=== PATIENT | female | born 1950 | race Caucasian/White ===

== ENCOUNTER 2020-05-10 14:25 | Observation (INO) | payer MEDICARE ==
[2020-05-10] MEDS ORDERED: ASPIRIN 81 MG PO STA (14:50)
[2020-05-10] MEDS ORDERED: NITROGLYCERIN OINT 1 INCH/GM PACKET TOPICAL STA (14:50)
--- NOTE | 2020-05-10 14:54 | ED ---
General Adult HPI - General Chief complaint: Chest Pain Stated complaint: Chest Pain Time Seen by Provider: 05/10/20 14:37 Source: patient, family, RN notes reviewed Mode of arrival: wheelchair Limitations: no limitations - History of Present Illness Initial comments: Patient is a pleasant 70-year-old female presenting to the emergency department chest discomfort. Onset of symptoms was this morning. Patient has had waxing and waning chest discomfort that is been mostly mild. Symptoms are near resolved at this point. Discomfort feels dull. There is some radiation towards the left ear and left arm. No specific dyspnea however patient has had some exertional dyspnea over the past 6 months or so. Patient was a little bit sweaty earlier. No nausea. No history of similar symptoms previous. Patient does have history of atrial fibrillation and is on Eliquis for this. - Related Data Allergies Allergy/AdvReac Type Severity Reaction Status Date / Time morphine AdvReac Nausea & Verified 05/10/20 14:31 Vomiting Review of Systems ROS Statement: Those systems with pertinent positive or pertinent negative responses have been documented in the HPI. ROS Other: All systems not noted in ROS Statement are negative. Constitutional: Denies: fever Eyes: Denies: eye pain ENT: Denies: ear pain Respiratory: Reports: as per HPI Cardiovascular: Reports: as per HPI, chest pain Endocrine: Reports: fatigue Gastrointestinal: Denies: abdominal pain Genitourinary: Denies: dysuria Musculoskeletal: Denies: back pain Skin: Denies: rash Neurological: Denies: weakness Past Medical History Past Medical History: Atrial Fibrillation, Rheumatoid Arthritis (RA) History of Any Multi-Drug Resistant Organisms: None Reported Past Surgical History: Back Surgery, Tubal Ligation Past Psychological History: Anxiety Smoking Status: Never smoker Past Alcohol Use History: Occasional Past Drug Use History: None Reported General Exam Limitations: no limitations General appearance: alert, in no apparent distress Head exam: Present: normocephalic Eye exam: Present: normal appearance Neck exam: Present: normal inspection Respiratory exam: Present: normal lung sounds bilaterally. Absent: chest wall tenderness Cardiovascular Exam: Present: regular rate, irregular rhythm Expanded Peripheral pulses: 2+: Radial (R), Radial (L), Posterior Tibialis (R), Posterior Tibialis (L), Dorsalis Pedis (R), Dorsalis Pedis (L) GI/Abdominal exam: Present: soft. Absent: tenderness Extremities exam: Present: normal inspection. Absent: pedal edema, calf tenderness Neurological exam: Present: alert Psychiatric exam: Present: normal affect, normal mood Skin exam: Present: normal color Course Vital Signs 05/10/20 05/10/20 05/10/20 14:28 15:22 16:12 Temperature 97.8 F Pulse Rate 109 H 88 92 Respiratory 20 19 17 Rate Blood Pressure 129/88 113/77 109/86 O2 Sat by Pulse 99 96 96 Oximetry EKG Findings - EKG Comments: EKG Findings:: H a fibrillation with rate of 82. QRS 94. QT 362. QTC 422. Normal axis. Normal QRS. No acute ST change. Medical Decision Making - Medical Decision Making Patient reevaluated and resting comfortably in bed, symptom-free at this time. Patient and family updated on results and plan. Case was discussed in detail with Dr. Skaggs, who will admit covering for Dr. Amaral - Lab Data Result diagrams: 05/10/20 15:08 05/10/20 15:08 Lab Results 05/10/20 05/10/20 05/10/20 Range/Units 15:08 15:08 15:08 WBC 6.9 (3.8-10.6) k/uL RBC 4.23 (3.80-5.40) m/uL Hgb 13.0 (11.4-16.0) gm/dL Hct 38.1 (34.0-46.0) % MCV 90.2 (80.0-100.0) fL MCH 30.7 (25.0-35.0) pg MCHC 34.0 (31.0-37.0) g/dL RDW 12.5 (11.5-15.5) % Plt Count 277 (150-450) k/uL Neutrophils % 62 % Lymphocytes % 29 % Monocytes % 5 % Eosinophils % 3 % Basophils % 0 % Neutrophils # 4.2 (1.3-7.7) k/uL Lymphocytes # 2.0 (1.0-4.8) k/uL Monocytes # 0.3 (0-1.0) k/uL Eosinophils # 0.2 (0-0.7) k/uL Basophils # 0.0 (0-0.2) k/uL PT 9.9 (9.0-12.0) sec INR 0.9 (<1.2) APTT 23.5 (22.0-30.0) sec D-Dimer 0.29 (<0.60) mg/L FEU Sodium 134 L (137-145) mmol/L Potassium 4.4 (3.5-5.1) mmol/L Chloride 103 (98-107) mmol/L Carbon Dioxide 25 (22-30) mmol/L Anion Gap 6 mmol/L BUN 17 (7-17) mg/dL Creatinine 0.70 (0.52-1.04) mg/dL Est GFR (CKD-EPI)AfAm >90 (>60 ml/min/1.73 sqM) Est GFR (CKD-EPI)NonAf 87 (>60 ml/min/1.73 sqM) Glucose 96 (74-99) mg/dL Calcium 9.4 (8.4-10.2) mg/dL Magnesium 2.1 (1.6-2.3) mg/dL Total Bilirubin 0.5 (0.2-1.3) mg/dL AST 26 (14-36) U/L ALT 18 (4-34) U/L Alkaline Phosphatase 66 (38-126) U/L Troponin I (0.000-0.034) ng/mL NT-Pro-B Natriuret Pep pg/mL Total Protein 6.9 (6.3-8.2) g/dL Albumin 4.3 (3.5-5.0) g/dL 05/10/20 05/10/20 Range/Units 15:08 15:08 WBC (3.8-10.6) k/uL RBC (3.80-5.40) m/uL Hgb (11.4-16.0) gm/dL Hct (34.0-46.0) % MCV (80.0-100.0) fL MCH (25.0-35.0) pg MCHC (31.0-37.0) g/dL RDW (11.5-15.5) % Plt Count (150-450) k/uL Neutrophils % % Lymphocytes % % Monocytes % % Eosinophils % % Basophils % % Neutrophils # (1.3-7.7) k/uL Lymphocytes # (1.0-4.8) k/uL Monocytes # (0-1.0) k/uL Eosinophils # (0-0.7) k/uL Basophils # (0-0.2) k/uL PT (9.0-12.0) sec INR (<1.2) APTT (22.0-30.0) sec D-Dimer (<0.60) mg/L FEU Sodium (137-145) mmol/L Potassium (3.5-5.1) mmol/L Chloride (98-107) mmol/L Carbon Dioxide (22-30) mmol/L Anion Gap mmol/L BUN (7-17) mg/dL Creatinine (0.52-1.04) mg/dL Est GFR (CKD-EPI)AfAm (>60 ml/min/1.73 sqM) Est GFR (CKD-EPI)NonAf (>60 ml/min/1.73 sqM) Glucose (74-99) mg/dL Calcium (8.4-10.2) mg/dL Magnesium (1.6-2.3) mg/dL Total Bilirubin (0.2-1.3) mg/dL AST (14-36) U/L ALT (4-34) U/L Alkaline Phosphatase (38-126) U/L Troponin I <0.012 (0.000-0.034) ng/mL NT-Pro-B Natriuret Pep 1780 pg/mL Total Protein (6.3-8.2) g/dL Albumin (3.5-5.0) g/dL - Radiology Data Radiology results: image reviewed (Chest x-ray shows no acute process) Disposition Clinical Impression: Chest pain Disposition: ADMITTED IP TO THIS [facility] Is patient prescribed a controlled substance at d/c from ED?: No Referrals: Mayur Street DO [Primary Care Provider] - 1-2 days Decision Time: 16:37
[2020-05-10 15:20] LABS: Basophils % (A) 0 %; Eosinophils # (A) 0.2 k/uL (0-0.7); Eosinophils % (A) 3 %; HCT 38.1 % (34.0-46.0); Lymphocytes % (A) 29 %; MCH 30.7 pg (25.0-35.0); MCV 90.2 fL (80.0-100.0); Monocytes # (A) 0.3 k/uL (0-1.0); Monocytes % (A) 5 %; Neutrophils # (A) 4.2 k/uL (1.3-7.7); Neutrophils % (A) 62 %; Platelet Count 277 k/uL (150-450); RBC 4.23 m/uL (3.80-5.40); RDW 12.5 % (11.5-15.5); WBC 6.9 k/uL (3.8-10.6)
[2020-05-10 15:27] LABS: ALT 18 U/L (4-34); AST 26 U/L (14-36); African American GFR (CKD) >90 (>60 ml/min/1.73 sqM); Albumin 4.3 g/dL (3.5-5.0); Alkaline Phosphatase 66 U/L (38-126); Anion Gap 6 mmol/L; Blood Urea Nitrogen 17 mg/dL (7-17); Calcium 9.4 mg/dL (8.4-10.2); Carbon Dioxide 25 mmol/L (22-30); Chloride 103 mmol/L (98-107); Glucose 96 mg/dL (74-99); Magnesium 2.1 mg/dL (1.6-2.3); Non-African American GFR(CKD) 87 (>60 ml/min/1.73 sqM); Potassium 4.4 mmol/L (3.5-5.1); Sodium 134 mmol/L (137-145); Total Bilirubin 0.5 mg/dL (0.2-1.3); Total Protein 6.9 g/dL (6.3-8.2)
--- NOTE | 2020-05-10 15:36 | XR ---
EXAMINATION TYPE: XR chest 2V DATE OF EXAM: 05/10/2020 COMPARISON: NONE HISTORY: Shortness of breath TECHNIQUE: Frontal and lateral views of the chest are obtained. FINDINGS: Scattered senescent parenchymal changes noted. Hyperinflation compatible with COPD. No evidence for infiltrate. No evidence for atelectasis. Heart size is stable. Mediastinal structures are stable and grossly unremarkable. No evidence for hilar prominence. Degenerative changes dorsal spine. IMPRESSION: 1. No evidence for acute pulmonary disease.
[2020-05-10 15:44] LABS: D-Dimer 0.29 mg/L FEU (<0.60); INR 0.9 (<1.2); Partial Thromboplastin Time 23.5 sec (22.0-30.0); Prothrombin Time 9.9 sec (9.0-12.0)
[2020-05-10] MEDS ORDERED: NITROGLYCERIN SL TABS 0.4 MG TAB SUBLINGUAL PRN (16:38)
[2020-05-10] MEDS ORDERED: HYDROcodone/APAP 7.5-325MG 1 EACH TAB PO PRN (18:39)
[2020-05-10] MEDS: METOPROLOL SUCCINATE (ER) 50 MG TAB.ER.24H PO SCH (20:30)
[2020-05-10] MEDS: APIXABAN 5 MG TAB PO SCH (20:30)
[2020-05-10] MEDS: VIT A,C & E-LUTEIN-MINERALS 1 EACH TAB PO SCH (20:30)
[2020-05-10] MEDS: NITROGLYCERIN OINT 1 INCH/GM PACKET TOPICAL SCH (20:36)
[2020-05-10 21:29] VITALS: RESP 18
[2020-05-11] MEDS: NITROGLYCERIN OINT 1 INCH/GM PACKET TOPICAL SCH ×2 (00:48→05:10)
[2020-05-11 07:37] LABS: Cholesterol 185 mg/dL (<200); HDL Cholesterol 72 mg/dL (40-60); LDL Cholesterol,Calculated 101 mg/dL (0-99); Triglycerides 62 mg/dL (<150)
[2020-05-11] MEDS: APIXABAN 5 MG TAB PO SCH (08:38)
[2020-05-11] MEDS: METOPROLOL SUCCINATE (ER) 50 MG TAB.ER.24H PO SCH (08:38)
[2020-05-11] MEDS: VIT A,C & E-LUTEIN-MINERALS 1 EACH TAB PO SCH (08:38)
[2020-05-11] MEDS ORDERED: MULTIVITAMINS, THERA 1 EACH TAB PO SCH (09:00)
[2020-05-11] MEDS ORDERED: CITALOPRAM HYDROBROMIDE 20 MG TAB PO SCH (09:00)
[2020-05-11] MEDS ORDERED: ASPIRIN 325 MG TAB PO SCH (09:00)
--- NOTE | 2020-05-11 09:44 | P.CRDCN ---
History of Present Illness History of present illness: HISTORY OF PRESENTING ILLNESS This is a pleasant 70-year-old female past medical history significant for chronic persistent atrial fibrillation on long-term anticoagulation status post failed cardioversion and hypertension. She follows in the office with a property adjuster [facility]. We have been asked to see in consultation for chest pain. He states yesterday after doing some light yard work she came in to be cleaned up. While taking a shower she bent over to clean her feet and noticed a pressure sensation in the left precordial region that radiated minimally up to the left jaw. It was associated with some diaphoresis. She denies shortness of breath, dizziness or palpitations. Pressure resolved on its own after about 20 minutes. She has had no further symptoms of chest discomfort since arriving at the hospital. DIAGNOSTICS EKG reveals her fibrillation with controlled ventricular rate. Chest xray negative for an acute cardiopulmonary process. Laboratory reviewed, CBC unremarkable, d-dimer 0.29, sodium 134, potassium 4.4, creatinine 0.7, cardiac enzymes negative 3, and T proBNP 1780, LDL 101 and HDL 72. Current cardiac medications include Eliquis 5 mg twice a day and Toprol 50 mg twice a day. REVIEW OF SYSTEMS At the time of my exam: CONSTITUTIONAL: Denies fever or chills. CARDIOVASCULAR: Denies chest pain, shortness of breath, orthopnea, PND or pa lpitations. RESPIRATORY: Denies cough. GASTROINTESTINAL: Denies abdominal pain, diarrhea, constipation, nausea or vomiting. MUSCULOSKELETAL: Denies myalgias. NEUROLOGIC: Denies numbness, tingling or weakness. ENDOCRINE: Denies fatigue, weight change, polydipsia or polyurina. GENITOURINARY: Denies burning, hematuria or urgency with micturation. HEMATOLOGIC: Denies history of anemia or bleeding. PHYSICAL EXAMINATION Blood pressure 128/86 heart rate 84 afebrile and maintaining oxygen saturation on room air. CONSTITUTIONAL: No apparent distress. HEENT: Head is normocephalic. Pupils are equal, round. Sclerae anicteric. Mucous membranes of the mouth are moist. No JVD. No carotid bruit. CHEST EXAMINATION: Lungs are clear to auscultation. No chest wall tenderness is noted on palpation or with deep breathing. HEART EXAMINATION: irregular rate and rhythm. S1, S2 heard. No murmurs, gallops or rub. ABDOMEN: Soft, nontender. Positive bowel sounds. EXTREMITIES: 2+ peripheral pulses, no lower extremity edema and no calf tenderness. NEUROLOGIC EXAMINATION: Patient is awake, alert and oriented x3. ASSESSMENT Chest pain, an acute coronary event has been ruled out. Chronic persistent atrial fibrillation on long-term anticoagulation with controlled ventricular rate Hypertension PLAN An acute coronary event has been ruled out. Obtain 2-D echocardiogram and Doppler study to assess cardiac structure and function. Recommend inpatient stress testing however the patient would prefer to follow-up with her primary property adjuster and have this done as an outpatient. The risks explained to the patient including sudden cardiac and she is agreeable to assume that risk. We have advised her to follow-up with her primary property adjuster upon discharge. Thank you kindly for this consultation. Nurse Practitioner note has been reviewed, I agree with a documented findings and plan of care. Patient was seen and examined. 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 colonoscopys Past Anesthesia/Blood Transfusion Reactions: No Reported Reaction Smoking Status: Never smoker - Past Family History Mother Family Medical History: Cancer Additional Family Medical History / Comment(s): colon cancer Father Family Medical History: AFIB Additional Family Medical History / Comment(s): 91 years old when passed Medications and Allergies Home Medications Medication Instructions Recorded Confirmed Type Apixaban [Eliquis] 5 mg PO BID 05/10/20 05/10/20 History Citalopram Hydrobromide See Taper PO DIRECTED 05/10/20 05/10/20 History [Citalopram HBr] HYDROcodone/APAP 7.5-325MG [[place] 1 tab PO Q6H PRN 05/10/20 05/10/20 History 7.5-325] Metoprolol Succinate (ER) [Toprol 50 mg PO BID 05/10/20 05/10/20 History Xl] Multivitamins, Thera [Multivitamin 1 tab PO DAILY 05/10/20 05/10/20 History (formulary)] Vit C/E/Zn/Coppr/Lutein/Zeaxan 1 cap PO BID 05/10/20 05/10/20 History [Preservision Areds 2 Softgel] Allergies Allergy/AdvReac Type Severity Reaction Status Date / Time morphine AdvReac Nausea & Verified 05/10/20 18:20 Vomiting Physical Exam Vitals: Vital Signs Temp Pulse Pulse Resp BP BP BP 05/11/20 03:00 97.8 F 83 18 133/83 05/10/20 21:00 98 F 70 18 121/80 05/10/20 17:45 97.8 F 106 H 16 132/84 05/10/20 17:28 98.4 F 98 18 118/88 05/10/20 16:12 92 17 109/86 05/10/20 15:22 88 19 113/77 05/10/20 14:28 97.8 F 109 H 20 129/88 Pulse Ox 05/11/20 03:00 96 05/10/20 21:00 97 05/10/20 17:45 99 05/10/20 17:28 97 05/10/20 16:12 96 05/10/20 15:22 96 05/10/20 14:28 99 Intake and Output 05/10/20 05/11/20 05/11/20 22:59 06:59 14:59 Intake Total 200 Balance 200 Intake: Oral 200 Other: Voiding Method Toilet Toilet # Voids 1 Weight 90.718 kg Results 05/10/20 15:08 05/10/20 15:08 Cardiac Enzymes 05/10/20 05/10/20 05/10/20 Range/Units 15:08 15:08 17:53 AST 26 (14-36) U/L Troponin I <0.012 <0.012 (0.000-0.034) ng/mL 05/10/20 Range/Units 21:08 AST (14-36) U/L Troponin I <0.012 (0.000-0.034) ng/mL Coagulation 05/10/20 Range/Units 15:08 PT 9.9 (9.0-12.0) sec APTT 23.5 (22.0-30.0) sec Lipids 05/11/20 Range/Units 06:45 Triglycerides 62 (<150) mg/dL Cholesterol 185 (<200) mg/dL HDL Cholesterol 72 H (40-60) mg/dL CBC 05/10/20 Range/Units 15:08 WBC 6.9 (3.8-10.6) k/uL RBC 4.23 (3.80-5.40) m/uL Hgb 13.0 (11.4-16.0) gm/dL Hct 38.1 (34.0-46.0) % Plt Count 277 (150-450) k/uL Comprehensive Metabolic Panel 05/10/20 Range/Units 15:08 Sodium 134 L (137-145) mmol/L Potassium 4.4 (3.5-5.1) mmol/L Chloride 103 (98-107) mmol/L Carbon Dioxide 25 (22-30) mmol/L BUN 17 (7-17) mg/dL Creatinine 0.70 (0.52-1.04) mg/dL Glucose 96 (74-99) mg/dL Calcium 9.4 (8.4-10.2) mg/dL AST 26 (14-36) U/L ALT 18 (4-34) U/L Alkaline Phosphatase 66 (38-126) U/L Total Protein 6.9 (6.3-8.2) g/dL Albumin 4.3 (3.5-5.0) g/dL Current Medications Generic Name Dose Route Start Last Admin Trade Name Freq PRN Reason Stop Dose Admin Hydrocodone Bitart/Acetaminophen 1 each 05/10/20 18:39 [place] 7.5-325 PO Q6H PRN Pain Apixaban 5 mg 05/10/20 21:00 05/10/20 20:30 Eliquis PO 5 mg BID [facility] Administration Aspirin 325 mg 05/11/20 09:00 Aspirin PO DAILY [facility] Citalopram Hydrobromide 20 mg 05/11/20 09:00 Celexa PO DAILY [facility] Metoprolol Succinate 50 mg 05/10/20 21:00 05/10/20 20:30 Toprol Xl PO 50 mg BID [facility]U Administration Multivitamins 1 each 05/11/20 09:00 Theragran PO DAILY [facility] Multivitamins/Minerals 1 each 05/10/20 21:00 05/10/20 20:30 Ivite PO 1 each BID WU Administration Nitroglycerin 0.4 mg 05/10/20 16:38 Nitrostat SUBLINGUAL Q5M PRN Chest Pain Nitroglycerin 1 inch 05/10/20 18:00 05/11/20 05:10 Nitro-Bid Oint TOPICAL Not Given Q6HR WU Sodium Chloride 10 ml 05/10/20 21:00 05/10/20 20:31 Saline Flush IV 10 ml BID WU Administration Intake and Output 05/10/20 05/11/20 05/11/20 22:59 06:59 14:59 Intake Total 200 Balance 200 Intake: Oral 200 Other: Voiding Method Toilet Toilet # Voids 1 Weight 90.718 kg 05/10/20 15:08 05/10/20 15:08
--- NOTE | 2020-05-11 12:05 | ECHOF ---
Referral Reason:cp, hx afib MEASUREMENTS -------- HEIGHT: 154.9 cm WEIGHT: 90.7 kg BP: 133/83 RVIDd: 3.3 cm (< 3.3) IVSd: 1.5 cm (0.6 - 1.1) LVIDd: 4.5 cm (3.9 - 5.3) LVPWd: 1.3 cm (0.6 - 1.1) IVSs: 1.8 cm LVIDs: 3.0 cm LVPWs: 1.6 cm LAESV Index (A-L): 46.48 ml/m Ao Diam: 3.2 cm (2.0 - 3.7) AV Cusp: 2.0 cm (1.5 - 2.6) MV EXCURSION: 22.863 mm (> 18.000) MV EF SLOPE: 182 mm/s (70 - 150) EPSS: 0.3 cm AR PHT: 512 ms RAP: 5.00 mmHg RVSP: 32.71 mmHg FINDINGS -------- This was a technically adequate study. The left ventricular size is normal. There is mild concentric left ventricular hypertrophy. Overa ll left ventricular systolic function is low-normal with, an EF between 50 - 55 %. Left ventricular fillimg pressure cannot be estimated due to Atrial fibrillation. The right ventricle is mildly enlarged. LA is severely dilated >40 ml/m2 The right atrium is mildly enlarged. Interatrial and interventricular septum intact. There is mild aortic valve sclerosis. There is mild aortic regurgitation. There is no evidence of aortic stenosis. Moderate mitral regurgitation is present. Mild tricuspid regurgitation present. There is borderline pulmonary hypertension. The right ventr icular systolic pressure, as measured by Doppler, is 32.71mmHg. There is no pulmonic regurgitation present. The aortic root size is normal. Normal inferior vena cava with normal inspiratory collapse consistent with estimated right atrial pre ssure of 5 mmHg. There is no pericardial effusion. CONCLUSIONS -------- 1. The left ventricular size is normal. 2. There is mild concentric left ventricular hypertrophy. 3. Overall left ventricular systolic function is low-normal with, an EF between 50 - 55 %. 4. Left ventricular fillimg pressure cannot be estimated due to Atrial fibrillation. 5. The right ventricle is mildly enlarged. 6. LA is severely dilated >40 ml/m2 7. The right atrium is mildly enlarged. 8. There is mild aortic valve sclerosis. 9. There is mild aortic regurgitation. 10. Moderate mitral regurgitation is present. 11. Mild tricuspid regurgitation present. 12. There is borderline pulmonary hypertension. 13. The right ventricular systolic pressure, as measured by Doppler, is 32.71mmHg. PILING SETTER: Justine Galan RDCS
[2020-05-11 16:18] VITALS: BP 138/94; PULSE 86; TEMP 98
--- NOTE | 2020-05-11 23:15 | P.HPIM ---
History of Present Illness H&P Date: 05/11/20 Chief Complaint: Chest pressure History of presenting complaint: This is a very pleasant 70-year-old patient off [place]. Chronic stable medical conditions include atrial fibrillation, rheumatoid arthritis and osteoarthritis of the lower spine. Patient does take Lopressor. Patient had presented with 2 hours episode yesterday of dull chest pressure in the precordial area. No dizziness no lightheadedness or perspiration or shortness of breath. The pain though did radiate to the left ear. Patient presents to ER with a diagnosis of unstable angina. Troponins were negative. No further episode. Review of systems: GEN.: None EYES: None HEENT: None NECK: None RESPIRATORY: None CARDIOVASCULAR: As above GASTROINTESTINAL: None GENITOURINARY: None MUSCULOSKELETAL: Joint pains LYMPHATICS: None HEMATOLOGICAL: None PSYCHIATRY: None NEUROLOGICAL: None Past medical history to include: Atrial fibrillation, rheumatoid arthritis, anxiety Social history: Drinks 3-4 beers a week. No smoking. . Physical examination: VITAL SIGNS: 97.8, 109, 20, 129/88, but in 9% on room air GENERAL: BMI 37.8, sitting up in bed, awake. EYES: Pupils equal. Conjunctiva normal. HEENT: External appearance of nose and ears normal, oral cavity grossly normal. NECK: JVD not raised; masses not palpable. HEART: First and second heart sounds are normal; no edema. LUNGS: Respiratory rate normal; clear to auscultation. ABDOMEN: Soft, nontender, liver spleen not palpable, no masses palpable. PSYCH: Alert and oriented x3; mood and affect normal. MUSCULAR skeletal: Evidence of arthritis in the hands NEUROLOGICAL: Cranial nerves grossly intact; no facial asymmetry, power and sensation grossly intact. LYMPHATICS: No lymph nodes palpable in the axilla and neck INVESTIGATIONS, reviewed in the clinical context: White count 6.9 hemoglobin 13 platelets 277 potassium 4.4 creatinine 0.7 Troponin I 3 negative proBNP 1780 LDL 101 EKG tracing personally reviewed by me-atrial fibrillation rate controlled Chest x-ray film personally reviewed by me-cardiomegaly Assessment: -Patient presents with at least 2 hours of left anterior chest wall pain more like a pressure with radiation to the left ear. Possibly unstable angina. Troponins negative. -Persistent atrial fibrillation rate controlled -Obesity BMI 37.8 -Anxiety not otherwise specified -Rheumatoid arthritis -Osteoarthritis of the lumbar spine Plan: Home medications were resumed. Given nitro paste. Cardiology were consulted. Troponins were negative. 2-D echo ordered. 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 Past Anesthesia/Blood Transfusion Reactions: No Reported Reaction Smoking Status: Never smoker - Past Family History Mother Family Medical History: Cancer Additional Family Medical History / Comment(s): colon cancer Father Family Medical History: AFIB Additional Family Medical History / Comment(s): 91 years old when passed Medications and Allergies Home Medications Medication Instructions Recorded Confirmed Type Apixaban [Eliquis] 5 mg PO BID 05/10/20 05/10/20 History Citalopram Hydrobromide See Taper PO DIRECTED 05/10/20 05/10/20 History [Citalopram HBr] HYDROcodone/APAP 7.5-325MG [[place] 1 tab PO Q6H PRN 05/10/20 05/10/20 History 7.5-325] Metoprolol Succinate (ER) [Toprol 50 mg PO BID 05/10/20 05/10/20 History XL] Multivitamins, Thera [Multivitamin 1 tab PO DAILY 05/10/20 05/10/20 History (formulary)] Vit C/E/Zn/Coppr/Lutein/Zeaxan 1 cap PO BID 05/10/20 05/10/20 History [Preservision Areds 2 Softgel] Aspirin 81 mg PO DAILY #30 chewable 05/11/20 Rx Nitroglycerin Sl Tabs [Nitrostat] 0.4 mg SUBLINGUAL Q5M PRN #25 tab 05/11/20 Rx Allergies Allergy/AdvReac Type Severity Reaction Status Date / Time morphine AdvReac Nausea & Verified 05/10/20 18:20 Vomiting Physical Exam Vitals: Vital Signs Temp Pulse Pulse Resp BP BP BP 05/11/20 08:51 97.5 F L 84 18 128/86 05/11/20 03:00 97.8 F 83 18 133/83 05/10/20 21:00 98 F 70 18 121/80 05/10/20 17:45 97.8 F 106 H 16 132/84 05/10/20 17:28 98.4 F 98 18 118/88 05/10/20 16:12 92 17 109/86 05/10/20 15:22 88 19 113/77 05/10/20 14:28 97.8 F 109 H 20 129/88 Pulse Ox 05/11/20 08:51 100 05/11/20 03:00 96 05/10/20 21:00 97 05/10/20 17:45 99 05/10/20 17:28 97 05/10/20 16:12 96 05/10/20 15:22 96 05/10/20 14:28 99 Intake and Output 05/10/20 05/11/20 05/11/20 22:59 06:59 14:59 Intake Total 200 Balance 200 Intake: Oral 200 Other: Voiding Method Toilet Toilet # Voids 1 Weight 90.718 kg Results CBC & Chem 7: 05/10/20 15:08 05/10/20 15:08 Labs: Abnormal Lab Results - Last 24 Hours (Table) 05/10/20 05/11/20 Range/Units 15:08 06:45 Sodium 134 L (137-145) mmol/L LDL Cholesterol, Calc 101 H (0-99) mg/dL HDL Cholesterol 72 H (40-60) mg/dL Thrombosis Risk Factor Assmnt - Choose All That Apply Each Factor Represents 1 point: Obesity (BMI >25), Swollen legs (current) Other Risk Factors: Yes (atrial fib) Each Risk Factor Represents 2 Points: Age 61-74 years Thrombosis Risk Factor Assessment Total Risk Factor Score: 4 Thrombosis Risk Factor Assessment Level: Moderate Risk
--- NOTE | 2020-05-11 23:19 | P.DS ---
Providers Date of admission: 05/10/20 16:38 Expected date of discharge: 05/11/20 Attending physician: Xavier Skaggs Consults: 05/10/20 16:38 Consult Physician Urgent Consulting Provider: Donaldo Hill Consult Reason/Comments: cp Do you want consulting provider notified?: Yes Primary care physician: [facility] Course: Chief Complaint: Chest pressure History of presenting complaint: This is a very pleasant 70-year-old patient off [address]. Chronic stable medical conditions include atrial fibrillation, rheumatoid arthritis and oste oarthritis of the lower spine. Patient does take Lopressor. Patient had presented with 2 hours episode yesterday of dull chest pressure in the precordial area. No dizziness no lightheadedness or perspiration or shortness of breath. The pain though did radiate to the left ear. Patient presents to ER with a diagnosis of unstable angina. Troponins were negative. No further episode. Admitted with unstable angina. Patient was offered a stress test. 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 She discussed this on shipping/receiving clerk here. Currently no chest pain. was present. Consultation: Dr. CHRIS Hill from cardiology Physical examination: VITAL SIGNS: 98, 86, 18, 138/94, 97% room air GENERAL: BMI 37.8, sitting up in bed, awake. EYES: Pupils equal. Conjunctiva normal. HEENT: External appearance of nose and ears normal, oral cavity grossly normal. NECK: JVD not raised; masses not palpable. HEART: First and second heart sounds are normal; no edema. LUNGS: Respiratory rate normal; clear to auscultation. ABDOMEN: Soft, nontender, liver spleen not palpable, no masses palpable. PSYCH: Alert and oriented x3; mood and affect normal. MUSCULAR skeletal: Evidence of arthritis in the hands INVESTIGATIONS, reviewed in the clinical context: White count 6.9 hemoglobin 13 platelets 277 potassium 4.4 creatinine 0.7 Troponin I 3 negative proBNP 1780 LDL 101 EKG tracing personally reviewed by me-atrial fibrillation rate controlled Chest x-ray film personally reviewed by me-cardiomegaly 2-D echocardiogram-a 50-55%, moderate mitral regurgitation Assessment: -Possible unstable angina, currently chest pain-free. -Persistent atrial fibrillation rate controlled -Obesity BMI 37.8 -Anxiety not otherwise specified -Rheumatoid arthritis -Osteoarthritis of the lumbar spine -Moderate mitral regurgitation, non rheumatic Disposition: Home Patient Condition at Discharge: Stable Plan - Discharge Summary New Discharge Prescriptions: New Aspirin 81 mg PO DAILY #30 chewable Nitroglycerin Sl Tabs [Nitrostat] 0.4 mg SUBLINGUAL Q5M PRN #25 tab PRN Reason: Chest Pain Continue Metoprolol Succinate (ER) [Toprol XL] 50 mg PO BID HYDROcodone/APAP 7.5-325MG [Lott 7.5-325] 1 tab PO Q6H PRN PRN Reason: Pain Apixaban [Eliquis] 5 mg PO BID Citalopram Hydrobromide [Citalopram HBr] See Taper PO DIRECTED Multivitamins, Thera [Multivitamin (formulary)] 1 tab PO DAILY Vit C/E/Zn/Coppr/Lutein/Zeaxan [Preservision Areds 2 Softgel] 1 cap PO BID Discharge Medication List Apixaban [Eliquis] 5 mg PO BID 05/10/20 [History] Citalopram Hydrobromide [Citalopram HBr] See Taper PO DIRECTED 05/10/20 [Hist ory] HYDROcodone/APAP 7.5-325MG [Lott 7.5-325] 1 tab PO Q6H PRN 05/10/20 [History] Metoprolol Succinate (ER) [Toprol XL] 50 mg PO BID 05/10/20 [History] Multivitamins, Thera [Multivitamin (formulary)] 1 tab PO DAILY 05/10/20 [History] Vit C/E/Zn/Coppr/Lutein/Zeaxan [Preservision Areds 2 Softgel] 1 cap PO BID 05/10/20 [History] Aspirin 81 mg PO DAILY #30 chewable 05/11/20 [Rx] Nitroglycerin Sl Tabs [Nitrostat] 0.4 mg SUBLINGUAL Q5M PRN #25 tab 05/11/20 [Rx] Follow up Appointment(s)/Referral(s): cardiology, [Other] - [address] DO [Primary Care Provider] - 1-2 days Patient Instructions/Handouts: Cardiac Stress Test (GEN) Discharge Disposition: HOME SELF-CARE
== END 2020-05-11 16:30 | disposition home or self-care (01) ==
LOC: EC 14:25 → 3NCARDOBS 16:38
PROVIDERS: ADMIT Hospitalist; ATTEND Hospitalist
DX: R07.9 Chest pain, unspecified (principal); E66.9 Obesity, unspecified; F41.9 Anxiety disorder, unspecified; I10 Essential (primary) hypertension; I34.0 Nonrheumatic mitral (valve) insufficiency; I48.19 Other persistent atrial fibrillation; M06.9 Rheumatoid arthritis, unspecified; M47.816 Spondylosis without myelopathy or radiculopathy, lumbar region; Z68.37 Body mass index [BMI] 37.0-37.9, adult; Z79.01 Long term (current) use of anticoagulants; Z79.82 Long term (current) use of aspirin; Z80.0 Family history of malignant neoplasm of digestive organs; Z88.5 Allergy status to narcotic agent; Z03.818 Encounter for observation for suspected exposure to other biological agents ruled out
CPT/HCPCS: 93005 ×2; 99285; 36415; 93306; 85379; 83880; 80061; 80053; 83735; 84484; 85025; 85610; 85730; 71046; G0378 ×2; U0003

== ENCOUNTER → 2025-02-16 | Outpatient (CLI) | payer MEDICARE ==
--- NOTE | 2025-02-17 07:33 | MM ---
Reason for Exam: Screening (asymptomatic). Last mammogram was performed 1 year(s) and 11 month(s) ago. Risk Values: Vidhi 5 year model risk: 1.2%. NCI Lifetime model risk: 2.4%. Prior Study Comparison: 01/12/2019 Bilateral Screening Mammogram, [facility] . 05/04/2021 Bilateral Screening Mammogram, [facility] . 03/18/2023 Bilateral Screening Mammogram, [facility] . Tissue Density: The breasts are almost entirely fatty. Findings: Analyzed By CAD. Right breast: There is no suspicious group of microcalcifications or new suspicious mass. Left breast: There is no suspicious group of microcalcifications or new suspicious mass. Overall Assessment: Negative, BI-RAD 1 Management: Screening Mammogram of both breasts in [address] [facility] will attempt to contact patient to return for supplemental views and ultrasound if indicated. Patient should continue monthly self-breast exams. A clinical breast exam by your physician is recommended on an annual basis. This exam should not preclude additional follow-up of suspicious palpable abnormalities. Note on Vidhi scores and lifetime risk: 1. A Vidhi score greater than 3% is considered moderate risk. If this is the case, consider specialist referral to assess eligibility for a risk reducing agent. 2. If overall lifetime risk for the development of breast cancer is 20% or higher, the patient may qualify for future screening with alternating mammogram and breast MRI. [facility], , 02/17/2025 7:30 AM. Electronically signed and approved by: Eric Ortega DO
== END | disposition home or self-care (01) ==
LOC: RADMAMWWP 09:24
PROVIDERS: ATTEND Obstetrics & Gynecology
DX: Z12.31 Encounter for screening mammogram for malignant neoplasm of breast (principal); R92.313 Mammographic fatty tissue density, bilateral breasts
CPT/HCPCS: 77063; 77067